=== PATIENT | female | born 1970 | race Caucasian/White ===

== ENCOUNTER 2017-07-26 16:56 | Inpatient (IN) | payer OTHER ==
[~2017-07-26] VITALS: Ht 165.1 cm; Wt 74.5 kg
[2017-07-26 17:53] LABS: BASOPHIL % 0.4 % (0-2); PLATELET COUNT 203 x10^3mcL (130-400); RED CELL DISTRIBUTION WIDTH 13.4 % (11.5-14.5)
[2017-07-26 18:04] LABS: CALCIUM 8.3 mg/dL (8.5-10.1); CHLORIDE SERUM 100 mmol/L (98-107); CREATININE SERUM 0.6 mg/dL (0.6-1.0); GFR1 > 60 mL/min; GLUCOSE SERUM 414 mg/dL (74-106); POTASSIUM SERUM 3.7 mmol/L (3.5-5.1); SODIUM SERUM 133 mmol/L (136-145)
[2017-07-26 18:16] LABS: ALKALINE PHOSPHATASE 135 U/L (46-116); ALT/SGPT 27 U/L (14-59); AST/SGOT 22 U/L (15-37); BILIRUBIN TOTAL 0.5 mg/dL (0.20-1.00); FREE T4 5.21 ng/dL (0.76-1.46); LIPASE 117 IU/L (73-393); MAGNESIUM 1.4 mg/dL (1.8-2.4); TOTAL PROTEIN, SERUM 7.5 g/dL (6.4-8.2)
[2017-07-26 18:25] LABS: ALBUMIN 2.7 g/dL (3.4-5.0)
[2017-07-26 18:45] LABS: UA SPECIFIC GRAVITY <=1.005 (1.005-1.035); microscopic required? YES; urine erythrocyte TRACE (NEGATIVE)
[2017-07-26 18:55] LABS: AMPHETAMINE QUAL UR NONE DETECTED (NEG <=1000)
[2017-07-26] MEDS ORDERED: METOPROLOL TART50 MG PO (19:19)
[2017-07-26] MEDS ORDERED: XARELTO10 M1 PO (19:20)
[2017-07-26] MEDS ORDERED: TAPAZOLE PO (19:20)
[2017-07-26] MEDS ORDERED: CARDIZEM CD180 MG PO (19:20)
[2017-07-26] MEDS ORDERED: LANTUS SOLOS100 U/M1 SC (19:21)
[2017-07-26 19:56] LABS: PHOSPHOROUS 3.1 mg/dL (2.5-4.9)
[2017-07-26 19:58] LABS: CHOLESTEROL/HDL RATIO 4.3
[2017-07-26 20:03] LABS: T3 TOTAL 4.98 ng/mL
[2017-07-26 20:05] LABS: FREE T4 5.44 ng/dL (0.76-1.46)
[2017-07-26 20:26] LABS: T4(THYROXINE) 28.3 ug/dL (4.7-13.3)
[2017-07-26 20:33] VITALS: BP 116/75
[2017-07-27 04:51] VITALS: BP 104/66
[2017-07-27 07:34] LABS: BASOPHIL % 0.8 % (0-2); PLATELET COUNT 159 x10^3mcL (130-400); RED CELL DISTRIBUTION WIDTH 13.4 % (11.5-14.5)
[2017-07-27 08:07] LABS: CALCIUM 8.5 mg/dL (8.5-10.1); CARBON DIOXIDE 20.7 mmol/L (21-32); CHLORIDE SERUM 103 mmol/L (98-107); CREATININE SERUM 0.4 mg/dL (0.6-1.0); GFR1 > 60 mL/min; GLUCOSE SERUM 238 mg/dL (74-106); POTASSIUM SERUM 3.7 mmol/L (3.5-5.1); SODIUM SERUM 134 mmol/L (136-145)
[2017-07-27 09:11] VITALS: BP 103/66
[2017-07-29 09:17] VITALS: Ht 165.1 cm; Wt 74.5 kg
== END 2017-07-27 11:03 | disposition left against medical advice (07) | DRG 243 ==
LOC: ED 16:56 → DU 18:59
PROVIDERS: Emergency Medicine; Family Medicine Sports Medicine
DX: K21.9 Gastro-esophageal reflux disease without esophagitis (principal); E43 Unspecified severe protein-calorie malnutrition; I48.91 Unspecified atrial fibrillation; E11.65 Type 2 diabetes mellitus with hyperglycemia; E83.42 Hypomagnesemia; E05.90 Thyrotoxicosis, unspecified without thyrotoxic crisis or storm; E78.1 Pure hyperglyceridemia; K64.9 Unspecified hemorrhoids; Z68.28 Body mass index [BMI] 28.0-28.9, adult; M94.0 Chondrocostal junction syndrome [Tietze]
CPT/HCPCS: 82962; 84439; J1815; J3475; J3490; J7030; Q0092